=== PATIENT | female | born 1970 | race Caucasian/White ===

== ENCOUNTER 2017-12-24 18:10 | Emergency (ER) | payer OTHER ==
[~2017-12-24] VITALS: Ht 154.9 cm; Wt 80.7 kg
[2017-12-24 18:25] VITALS: BP 131/80
[2017-12-24] MEDS ORDERED: BACITRACIN OINT 500 UNITS/GM PKT TP ONE (19:40)
[2017-12-24 20:00] VITALS: BP 129/75
== END 2017-12-24 20:00 | disposition home or self-care (01) ==
LOC: MED 18:10
DX: S61.201A Unspecified open wound of left index finger without damage to nail, initial encounter (principal); I10 Essential (primary) hypertension; W45.8XXA Other foreign body or object entering through skin, initial encounter; Y93.89 Activity, other specified; Y92.89 Other specified places as the place of occurrence of the external cause; Y99.8 Other external cause status
CPT/HCPCS: 90471; 90715; 99283

== ENCOUNTER 2019-01-16 22:42 | Emergency (ER) | payer OTHER ==
[~2019-01-16] VITALS: Ht 157.5 cm; Wt 78.5 kg
[2019-01-16 22:51] VITALS: BP 177/100
--- NOTE | 2019-01-16 22:51 | NUR ---
TO BED # 09 AMBULATORY, REPORT GIVEN TO SARA MALHOTRA
--- NOTE | 2019-01-16 23:00 | NUR ---
48/F PRESENTS TO ED, 06/04 C/O BODY ACHES, INCLUDING R FA, R ANKLE AND POSTERIOR NECK, S/P FALL X1 DAY WHILE ATTEMPTING TO SIT ON A CHAIR, REPORTS CHAIR FALL ON TOP OF HER. REPORTS TENDERNESS ON COMPLAINED SITES, +CMS. PT DENIES LOC, N/V. AOX4, GCS 15, RR EVEN AND UNLABORED. HX HTN RX HTN MEDS, IBUPROFEN
--- NOTE | 2019-01-16 23:03 | NUR ---
Dr. Navarro evaluating patient at bedside.
[2019-01-16] MEDS ORDERED: KETOROLAC 30 MG/ML VIAL IM ONE (23:10)
[2019-01-16] MEDS ORDERED: DIAZEPAM 5 MG TAB PO ONE (23:10)
--- NOTE | 2019-01-16 23:31 | NUR ---
PT TAKEN TO XRAY
--- NOTE | 2019-01-17 00:03 | NUR ---
PT RETURN FROM RAD
[2019-01-17 00:43] VITALS: BP 133/72
== END 2019-01-17 00:44 | disposition home or self-care (01) ==
LOC: MED 22:42
DX: S93.401A Sprain of unspecified ligament of right ankle, initial encounter (principal); S16.1XXA Strain of muscle, fascia and tendon at neck level, initial encounter; S50.11XA Contusion of right forearm, initial encounter; I10 Essential (primary) hypertension; W07.XXXA Fall from chair, initial encounter; Y93.89 Activity, other specified; Y92.89 Other specified places as the place of occurrence of the external cause; Y99.8 Other external cause status
CPT/HCPCS: 72040; 73090; 73590; 96372; 99283; J1885

== ENCOUNTER 2019-06-13 10:50 | Emergency (ER) | payer OTHER ==
[~2019-06-13] VITALS: Ht 149.9 cm; Wt 82.1 kg
[2019-06-13 11:00] VITALS: BP 123/68
--- NOTE | 2019-06-13 11:13 | NUR ---
Patient ambulated to bed 11. RN evaluating patient at bedside.
--- NOTE | 2019-06-13 11:30 | NUR ---
C/O NON RADIATING CENTER ABD PAIN 6/10 AND SHARP ABOVE UMBILICUS X2 DAYS. PT DENIES N/V/D/FEVER. DENIES DYSURIA, FREQUENCY. BOWEL SOUNDS PRESENT X4, LBM 06/12/19 AND REGULAR PER PT. ABDOMEN SOFT, FLAT AND NON TENDER TO PALPATION. BED IN LOW POSITION, SIDE RAIL UP X1.
--- NOTE | 2019-06-13 11:34 | NUR ---
Dr. Navarro evaluating patient at bedside.
[2019-06-13] MEDS ORDERED: DICYCLOMINE HCL LIQUID 20 MG, ALUMINUM HYD/MAG/SIMETHICONE 30 ML, LIDOCAINE VISCOUS 2% ... PO ONE ×3 (11:35)
[2019-06-13 12:03] LABS: BASOPHILS # (AUTO) 0.1 K/uL (0.00-0.22); BASOPHILS % (AUTO) 0.9 % (0.0-2.0); EOSINOPHILS # (AUTO) 0.2 K/uL (0-0.4); HEMATOCRIT 37.9 % (36-48); HEMOGLOBIN 12.6 g/dL (12.0-16.0); LYMPHOCYTES # (AUTO) 2.4 K/uL (2.5-16.5); LYMPHOCYTES % (AUTO) 24.7 % (20.5-51.1); MEAN CORPUSCULAR HEMOGLOBIN 28 pg (27-31); MEAN CORPUSCULAR HGB CONC 33 g/dL (33-37); MEAN CORPUSCULAR VOLUME 84.9 fL (80-94); MONOCYTES # (AUTO) 0.9 K/uL (0.8-1.0); MONOCYTES % (AUTO) 9.1 % (1.7-9.3); NEUTROPHILS # (AUTO) 6.1 K/uL (1.8-7.7); NEUTROPHILS % (AUTO) 63.3 % (42.2-75.2); PLATELET COUNT (AUTO) 209 K/uL (140-450); RED BLOOD CELL COUNT(AUTO) 4.47 MIL/uL (4.20-5.40); RED CELL DISTRIBUTION WIDTH 14.7 % (11.6-13.7); WHITE BLOOD COUNT (AUTO) 9.7 K/uL (4.8-10.8)
[2019-06-13 12:47] LABS: APPEARANCE,URINE CLEAR (CLEAR); BILIRUBIN,URINE NEGATIVE (NEGATIVE); BLOOD, URINE NEGATIVE (NEGATIVE); COLOR,URINE YELLOW (YELLOW); LEUKOCYTE ESTERASE ,URINE NEGATIVE (NEGATIVE); NITRITE, URINE NEGATIVE (NEGATIVE); PH,URINE 6.5 (5.0-9.0); UGLUCOSE NEGATIVE (NEGATIVE)
[2019-06-13 12:56] LABS: ALBUMIN 3.3 g/dL (3.4-5.0); CREATININE 0.6 mg/dL (0.6-1.3); TOTAL BILIRUBIN 0.4 mg/dL (0.0-1.0)
[2019-06-13 13:05] LABS: WBC,URINE 0-5 /HPF (0-5)
[2019-06-13] MEDS ORDERED: POTASSIUM CHLORIDE 10 MEQ TABER PO ONE (13:45)
[2019-06-13 14:15] VITALS: BP 120/65
--- NOTE | 2019-06-13 14:15 | NUR ---
Patient discharged with v/s stable. Written and verbal after care instructions given and explained. Patient alert, oriented and verbalized understanding of instructions. Ambulatory with steady gait. All questions addressed prior to discharge. ID band removed. Patient advised to follow up with PMD. Rx of MYLANTA given. Patient educated on indication of medication including possible reaction and side effects. Opportunity to ask questions provided and answered.
== END 2019-06-13 14:15 | disposition home or self-care (01) ==
LOC: MED 10:50
DX: R10.2 Pelvic and perineal pain (principal); I10 Essential (primary) hypertension; Z98.51 Tubal ligation status
CPT/HCPCS: 36415; 80053; 81001; 81025; 83690; 84484; 85025; 87086; 93005; 99284

== ENCOUNTER 2021-06-05 09:10 | Day surgery (SDC) | payer OTHER ==
[~2021-06-05] VITALS: Ht 154.9 cm; Wt 75.3 kg
[2021-06-05] MEDS ORDERED: LIDOCAINE 2% 100 MG/5 ML UJET TP ONE ×2 (11:16→11:40)
[2021-06-05] MEDS ORDERED: diphenhydrAMINE 50 MG/ML VIAL ONE (11:16)
[2021-06-05] MEDS ORDERED: MIDAZOLAM 5 MG/5 ML VIAL ONE (11:16)
[2021-06-05] MEDS ORDERED: fentaNYL citrate 0.05 MG/ML VIAL ONE (11:16)
[2021-06-05] MEDS ORDERED: diphenhydrAMINE 50 MG/ML VIAL IVP ONE (11:40)
[2021-06-05] MEDS ORDERED: MIDAZOLAM 2 MG/2 ML VIAL IVP ONE (11:40)
[2021-06-05] MEDS ORDERED: fentaNYL citrate 0.05 MG/ML VIAL IVP ONE (11:40)
[2021-06-05] MEDS ORDERED: diphenhydrAMINE 50 MG/ML VIAL IVP SCH (11:45)
== END 2021-06-05 12:49 | disposition home or self-care (01) ==
LOC: MDS 09:10 → MMU 09:28 → MDS 12:49
PROVIDERS: ATTEND Internal Medicine Gastroenterology
DX: Z12.11 Encounter for screening for malignant neoplasm of colon (principal); I10 Essential (primary) hypertension; Z79.899 Other long term (current) drug therapy
CPT/HCPCS: 45378; J1200; J2250; J3010

== ENCOUNTER 2022-01-26 21:59 | Emergency (ER) | payer OTHER ==
[~2022-01-26] VITALS: Ht 154.9 cm; Wt 78.5 kg
[2022-01-26 22:22] VITALS: BP 159/101
[2022-01-26] MEDS ORDERED: MAGN400S60 PO (23:22)
[2022-01-26] MEDS ORDERED: ONDANSETRON 4 MG ODT PO ONE (23:30)
[2022-01-26] MEDS ORDERED: ONDANSETRON 4 MG ODT ONE (23:31)
[2022-01-26] MEDS ORDERED: ONDA-188 SL (23:31)
[2022-01-26 23:38] VITALS: BP 151/88
== END 2022-01-26 23:38 | disposition home or self-care (01) ==
LOC: MED 21:59
DX: K59.00 Constipation, unspecified (principal); I10 Essential (primary) hypertension; Z79.899 Other long term (current) drug therapy
CPT/HCPCS: 74018; 81002; 81025; 99283; Q0092; Q0162